=== PATIENT | female | born 1940 | race Caucasian/White ===

== ENCOUNTER 2016-08-26 06:30 | Inpatient (IN) | payer OTHER ==
[2016-07-09 09:13] VITALS: BMI 29.0
--- NOTE | 2016-07-09 09:43 | PAT Medication Instructions ---
Service Date Jul 09, 2016. Current Home Medication List Acetaminophen (Tylenol), 500 MG PO PRN Aspirin (Aspirin Ec), 81 MG PO QPM Carboxymethylcellulose Sodium (Refresh Tears), 1 DROP OPB BID PRN for RN Cholecalciferol (Vitamin D 1000 Unit), 2,000 INTER.UNIT PO QAM Fluticasone Propionate (Nasal) (Flonase Allergy Relief), 1 SPRAY ANN PRN Lansoprazole (Prevacid), 15 MG PO QAM Pravastatin (Pravachol ), 10 MG PO HS Tamoxifen (Nolvadex), 20 MG PO QAM Tocopheryl Acet,Dl-Alpha (Vitamin E), 400 INTER.UNIT PO QAM [ Atul Reds], 1 TAB PO QAM Medication Instructions For Your Scheduled Surgery Tamoxifen (Nolvadex), 20 MG PO QAM (continue as usual): - Hold the following medications 2 weeks prior to surgery: Tocopheryl Acet,Dl-Alpha (Vitamin E), 400 INTER.UNIT PO QAM [ Atul Reds], 1 TAB PO QAM - Hold the following medications the morning of surgery: Cholecalciferol (Vitamin D 1000 Unit), 2,000 INTER.UNIT PO QAM - Take the following medications the morning of surgery with a sip of water: Acetaminophen (Tylenol), 500 MG PO PRN (if needed) Carboxymethylcellulose Sodium (Refresh Tears), 1 DROP OPB BID PRN for RN (if needed) Lansoprazole (Prevacid), 15 MG PO QAM (if needed) Fluticasone Propionate (Nasal) (Flonase Allergy Relief), 1 SPRAY ANN PRN (if needed) - Take the following medications as scheduled the night before surgery: Aspirin (Aspirin Ec), 81 MG PO QPM (okay to continue per surgeon) Acetaminophen (Tylenol), 500 MG PO PRN (if needed) Carboxymethylcellulose Sodium (Refresh Tears), 1 DROP OPB BID PRN for RN (if needed) Pravastatin (Pravachol ), 10 MG PO HS Fluticasone Propionate (Nasal) (Flonase Allergy Relief), 1 SPRAY ANN PRN (if needed) If you have any questions please call us at [phone] (Nhung Johnson PA-C) or [phone] or [phone]
[2016-07-09 10:00] LABS: BASO % 0.5 %; BASO ABS # 0.03 K/uL (0-0.2); COMPLETE YES; EOS % 0.5 %; HEMATOCRIT 42.8 % (37-47); IG% 0.2 %; LYMPH % 24.9 %; LYMPH ABS # 1.51 K/uL (1.2-3.4); MEAN CELL VOLUME 90.5 fL (80-100); MEAN CORPUSCULAR HEMOGLOBIN 32.6 pg (25-34); MEAN PLATELET VOLUME 9.6 fL (7.4-10.4); MONO % 10.9 %; PLATELET COUNT 157 K/uL (130-400); RED BLOOD COUNT 4.73 M/uL (4.2-5.4); WHITE BLOOD COUNT 6.07 K/uL (4.8-10.8)
[2016-07-09 10:47] LABS: BUN/CREATININE RATIO 15.2 (10-20); CREATININE 0.75 mg/dl (0.60-1.20); POTASSIUM 4.3 mmol/L (3.5-5.1)
[2016-07-09 11:45] LABS: CALCIUM 9.4 mg/dl (8.5-10.1)
--- NOTE | 2016-08-20 22:39 | HISTORY & PHYSICAL EXAMINATION ---
DATE OF ADMISSION: 08/26/2016 CHIEF COMPLAINT: Left knee pain. HISTORY OF PRESENT ILLNESS: The patient is a 76-year-old female who is now about 6 months out from right knee replacement. She has got a long history of bilateral knee pain and discomfort, now has become more and more limited by her left knee. The pain is mostly on the medial side of her knee. It is increased with weightbearing. She has failed conservative treatment. She is happy with the right knee and would like to have her left knee replaced. PAST MEDICAL HISTORY: 1. Breast cancer status post resection without recurrence. 2. Elevated cholesterol. 3. Gastroesophageal reflux disease. 4. Mild obesity with a BMI of 29. PAST SURGICAL HISTORY: Previous surgeries include: 1. Mastectomy 5 years ago. 2. Right total knee replacement done 01/08/2016. ALLERGIES: None. CURRENT MEDICINES: Include: 1. Pravastatin 10 mg a day. 2. Tamoxifen 20 mg a day. 3. Aspirin 81 mg a day. 4. Omegared 400 mg. 5. Vitamin E. 6. Vitamin D3. SOCIAL HISTORY: A 76-year-old white female. She is . Lives in [place]. Does not drink alcohol. FAMILY HISTORY: Significant for heart disease and diabetes. REVIEW OF SYSTEMS: Negative for diabetes, neurologic problems, vascular problems, bleeding disorders. No chest pain or shortness of breath. No history of DVT or PE. PHYSICAL EXAMINATION: GENERAL: This is a pleasant healthy, middle-aged female who looks to be in good health. HEENT: Benign. NECK: Supple. No lymphadenopathy. LUNGS: Clear to auscultation. HEART: Has a regular rate and rhythm. ABDOMEN: Soft, nontender, nondistended. EXTREMITIES: Grossly neurovascularly intact except as follows: Examination of left knee reveals the patient walks with a slight varus alignment to her knee. She has bony hypertrophy medially. She is tender over the medial joint line. Small knee effusion. Range of motion 0-120. No instability. Examination of the right knee reveals well-healed incision. Fairly mild swelling. Range of motion 0-120. X-RAYS: X-rays of the left knee were reviewed. It shows advanced left knee DJD. She has complete loss of her medial joint space. ASSESSMENT: A 76-year-old white female, 6 months out from right knee replacement with advanced left knee degenerative joint disease. She has failed conservative treatment and would like to have her left knee fixed. She is happy with her right knee. PLAN: We are going to take her to the operating room and do a left total knee replacement. The risks and benefits of this procedure were explained to the patient including but not limited to DVT, PE, , infection, neurological injury, vascular injury, bleeding problems, pain, limited range of motion, stiffness, failure to relieve symptoms, incomplete relief of symptoms, etc. The patient understands and desires to proceed. Informed consent was obtained. We did talk to her about medicines. She will continue all her medicines except for supplements up to the time of surgery. She is planning to be discharged to home and use the [facility] home health program. I will see her back 2 weeks postop.
[2016-08-26] VITALS (8 sets, daily range): BP systolic 97–151; BP diastolic 52–82; PULSE 53–69; TEMP 36.3–36.7; O2SAT 94–99; Ht 154.9 cm; Wt 72.5 kg
[~2016-08-26] VITALS: Ht 154.9 cm; Wt 72.5 kg
[~2016-08-26 06:30] MED LIST: ACET-1256 PO; ACETAMINOPHEN 500 MG TAB PO SCH; ASPI81TA28 PO; BUPIVACAINE LIPOSOME 266 MG, BUPIVACAINE/EPINEPHRINE INJ 50 ML, SODIUM CHLORIDE 0.9% PF... INFIL SCH; CARB0.5D28 OPB; CEFAZOLIN 2000 MG/60 ML D5W 60 ML IV SCH; CHOL100027 PO; FAMOTIDINE 20 MG TAB PO SCH; FLUT0.15 NAE; GABAPENTIN 300 MG CAP PO SCH; LACTATED RINGER'S 1000ML 500 ML IV ONE; LACTATED RINGER'S 1000ML IV SCH; LANS15CA15 PO; MEGA REDS PO; METOCLOPRAMIDE HCL 10 MG TAB PO SCH; PRAV20TA PO; SCOPOLAMINE 1.5 MG TDSY TD SCH; TAMO20TA47 PO; TRANEXAMIC ACID INJ 1,000 MG in SODIUM CHLORIDE 0.9% 100ML 100 ML IV SCH; VITA400C15 PO
[2016-08-26] MEDS ORDERED: BUPIVACAINE 0.5 % 5 MG/1 ML PF 10ML VIAL ONE (06:35)
--- NOTE | 2016-08-26 06:54 | History & Physical Bridge Note ---
H&P Re-Evaluation Bridge Note: I have examined the patient, reviewed the History & Physical and in the interval since the performance of the History & Physical I have noted the following changes of clinical significance: No changes noted
[2016-08-26] MEDS ORDERED: PROPOFOL IV EMULSION 10 MG/ML 20 ML VIAL IV ONE (07:42)
[2016-08-26] MEDS ORDERED: MIDAZOLAM HCL 1 MG/ML 2ML VIAL ONE ×2 (07:42→07:43)
[2016-08-26] MEDS ORDERED: LIDOCAINE HCL 2% 2 ML VIAL (20MG/ML) ONE (07:42)
[2016-08-26] MEDS ORDERED: ONDANSETRON INJ 2 MG/ML 2 ML VIAL ONE (07:42)
[2016-08-26] MEDS ORDERED: FENTANYL CITRATE INJ 50 MCG/1 ML 2 ML VIAL ONE (07:43)
[2016-08-26] MEDS ORDERED: ATROPINE SULFATE 0.1 MG/ML 5ML SYR IV PRN (08:30)
[2016-08-26] MEDS ORDERED: FENTANYL CITRATE INJ 50 MCG/1 ML 2 ML VIAL IV PRN (08:30)
[2016-08-26] MEDS ORDERED: ONDANSETRON INJ 2 MG/ML 2 ML VIAL IV PRN ×2 (08:30→11:00)
[2016-08-26] MEDS ORDERED: EpHEDrine SULFATE INJ 50 MG/ML AMP IV PRN (08:30)
[2016-08-26] MEDS ORDERED: BUPIVACAINE LIPOSOME 1/3% 266 MG/20 ML VIAL INFIL ONE (09:15)
[2016-08-26] MEDS ORDERED: PHENYLEPHRINE HCL INJ 10 MG/ML VIAL ONE (09:56)
[2016-08-26] MEDS ORDERED: BACITRACIN 50000 UNIT VIAL IR ONE (10:15)
--- NOTE | 2016-08-26 10:59 | [facility] Post Operative Brief Note ---
Immediate Operative Summary Operative Date Aug 26, 2016. Pre-Operative Diagnosis Advanced Left Knee Degenerative Joint Disease Post-Operative Diagnosis Advanced Left Knee Degenerative Joint Disease Procedure(s) Performed Left Total Knee Arthroplasty Surgeon Dr. Dubon Internal Grinding Machine Operator Surgeon(s) APRIL Seo Estimated Blood Loss 50 ml Findings Left Knee DJD Fluids (cc crystalloids) 1600 cc Specimens A. Left Knee Bone and Tissue Drains None Anesthesia Spinal Complication(s) None Disposition Recovery Room / PACU
[2016-08-26] MEDS ORDERED: MoRPHine SULFATE 2 MG/ML CARP IV PRN (11:00)
[2016-08-26] MEDS ORDERED: BISACODYL 10 MG SUPP PR PRN (11:00)
[2016-08-26] MEDS ORDERED: SILVER SULFADIAZINE 1% CR 50 GM JAR EXT PRN (11:00)
[2016-08-26] MEDS ORDERED: METOCLOPRAMIDE HCL INJ 5 MG/ML 2 ML VIAL IV PRN (11:00)
[2016-08-26] MEDS ORDERED: DiphenhydrAMINE HCL 50 MG/ML VIAL IV PRN (11:00)
[2016-08-26] MEDS ORDERED: FLUTICASONE PROPIONATE NA SPR 16 GM BTL NAE PRN (11:00)
[2016-08-26] MEDS ORDERED: MAGNESIUM HYDROXIDE SUSP 30 ML UDC PO PRN (11:00)
[2016-08-26] MEDS ORDERED: ALUMINUM/MAGNESIUM/SIMETH (MAALOX MAX) 30 ML UDC PO PRN (11:00)
[2016-08-26] MEDS ORDERED: ZOLPIDEM TARTRATE 5 MG TAB PO PRN (11:00)
--- NOTE | 2016-08-26 11:32 | DIAGNOSTIC IMAGING REPORT ---
LEFT KNEE 1 OR 2 VIEWS ROUTINE CLINICAL HISTORY: Postop examination COMPARISON: None. DISCUSSION: There are postsurgical changes of a total left knee arthroplasty and patellar resurfacing. The femoral and tibial components appear well seated. Overlying skin bia are evident. There is air in the soft tissues consistent with recent surgery. IMPRESSION: Postsurgical changes of a total left knee arthroplasty. Electronically signed by: Franco Islas M.D. 08/26/2016 11:30 AM Dictated Date/Time: 08/26/2016 11:30 AM
--- NOTE | 2016-08-26 12:08 | OPERATIVE REPORT ---
DATE OF OPERATION: 08/26/2016 SURGEON: Dr. Giorgi Dubon. ENGRAVER AUTOMATIC: APRIL Gilman. PREOPERATIVE DIAGNOSIS: Left knee degenerative joint disease. POSTOPERATIVE DIAGNOSIS: Same. PROCEDURE PERFORMED: Left cemented posterior stabilized total knee arthroplasty. COMPLICATIONS: None. ESTIMATED BLOOD LOSS: 50 mL. FLUID REPLACEMENT: 1600 mL crystalloid fluid replacement. ANESTHESIA: Spinal with adductor canal block. DRAINS: None. SPECIMENS: Left knee sent for pathology. TOURNIQUET TIME: 50 minutes at 300 mmHg. OPERATIVE INDICATIONS: The patient is a 76-year-old female who has had a long history of bilateral knee pain, discomfort and DJD. She had failed conservative care. She underwent a right knee replacement 6 months ago, has done extremely well from this. She continued to be hampered by her left knee pain. X-rays showed advanced medial compartment DJD. The patient elects to proceed with operative treatment. OPERATIVE FINDINGS: Operative findings revealed advanced left knee medial compartment DJD. She had grade 4 [id number] disease with eburnation of the medial femoral condyle and the anterior medial tibial plateau. She had a large knee joint effusion. She had a fixed varus deformity to her knee. OPERATIVE IMPLANTS: Operative implants consisted of: 1. Biomet Vanguard size 60 left posterior stabilized femoral component. 2. Biomet size 67 tibial tray. 3. A 10 mm posterior stabilized polyethylene insert. 4. A 31 x 8 all poly patella. OPERATIVE PROCEDURE: The patient was taken to the operating room, identified and placed on the operating table in supine position. All contact areas were appropriately padded. IV antibiotics provided by the anesthesia team. A spinal anesthetic and adductor canal block had been provided in the holding area. Rocha catheter was placed in sterile fashion. Left thigh tourniquet was then placed and left lower extremity was then prepped and draped in the usual sterile fashion. The left leg was elevated and exsanguinated with the use of an Esmarch and tourniquet was placed at 300 mmHg. An anterior approach to the left knee was then performed through a longitudinal incision centered over the patella. Sharp dissection was carried out through the subcutaneous tissues down to the level of the extensor mechanism. A medial parapatellar arthrotomy incision was made. Some subperiosteal dissection was carried out medially. The fat pad was resected from beneath the patellar tendon. The lateral patellofemoral ligament was released. The patella was everted and knee was flexed. The osteophytes were taken off the distal femur. The ACL and PCL were then released from the distal femur and the tibia subluxated anteriorly. The external tibial alignment jig was then placed in the anterior face of the tibia and adjusted about 14 mm medially. Proximal tibial cut was made to remove about 2 mm of bone from the most deficient aspect of the medial tibial plateau. The tibia was then sized to a size 67. Some osteophytes were taken off medial and posteromedially. Attention was then drawn to the femur. The distal femur was entered with a sharp drill. Intramedullary canal was suctioned. A left 5-degree valgus cutting guide was placed. Distal femoral cutting block was pinned in place. Distal femoral cut was made to take an additional 3 mm of bone off the distal femur. The femur was then sized to a size 60. We did downsize this just slightly. The AP cutting block was pinned parallel to the epicondylar axis, which was 4 degrees of external rotation. The anterior cut, anterior chamfer, posterior cut, posterior chamfer cuts were made. Box cutting guide was placed and adjusted slightly lateral and the box cut was made. The knee was flexed. The remnants of the medial and lateral menisci were excised. The osteophytes were taken off the posterior aspect of the femur. Trial femoral component was placed. Tibial tray was pinned in maximum external rotation and the drill and stem punch were used to create defect in proximal tibia for the tibial tray. The knee was then trialed and a 10 mm insert fit most appropriately. Attention was then drawn to the patella. The patella was cleaned of all soft tissues. Patella thickness measured 22 mm, was cut down to 13. It was sized to a size 31 patella. Lug holes were drilled for the 31 patella. Lateral osteophyte was removed. Patella button was placed. Knee was taken through range of motion and the patella tracked nicely with no thumbs test. Attention was then drawn toward placement of the permanent components. All trial components were removed. The bone plug was placed in the distal femur to limit blood loss. A double batch of Palacos G cement was mixed. A left size 60 posterior stabilized femoral component, size 67 tibial tray, a 10 mm posterior stabilized polyethylene insert, and a 31 x 8 all poly patella were then cemented in place. Knee was brought out into full extension until cement hardened. A final cement check was then performed. The pericapsular tissues were injected with 100 mL of a combination of 20 mL of Exparel, 30 mL of normal saline, 50 mL of 0.25% Marcaine with epinephrine. The patient did receive 1 g of tranexamic acid. The tourniquet was then let down for a final tourniquet time of 15 minutes. Hemostasis was assured with use of electrocautery. The wound was once again irrigated. The extensor mechanism was then closed with a combination of #1 PDS suture and #1 Vicryl suture in a [id number] fashion. Extensor mechanism was checked and found to be intact. The subcutaneous tissues were then closed with 2-0 Dexon suture in a buried interrupted fashion. Skin was closed with skin bia. Leg was then cleaned and dried and a sterile dressing of Xeroform, 4 x 4, sterile cast padding and Juan Manuel bandage were applied. The patient was then transferred to the recovery room in stable condition. The patient tolerated the procedure well with no complications. All needle and sponge counts were correct at the end of the operation. I attest to the content of the Intraoperative Record and any orders documented therein. Any exceptions are noted below. JEROMED
[2016-08-26] MEDS: D5W AND 1/2NSS + 20MEQ KCL 1,000 ML IV SCH ×2 (13:35→22:21)
--- NOTE | 2016-08-26 13:53 | PROGRESS NOTE ---
DATE: 08/26/2016 DATE: 08/26/2016. SUBJECTIVE: A 76-year-old white female postop from a left knee replacement. She is doing well. Not having any pain. No chest pain or shortness of breath. Not feeling dizzy or lightheaded. OBJECTIVE: VITAL SIGNS: Temperature 36.3. Vital signs stable. PHYSICAL EXAMINATION: GENERAL: Reveals a pleasant elderly female. She is sitting up in bed and looks comfortable. She is talking to her family. LUNGS: Clear to auscultation. HEART: Regular rate and rhythm. ABDOMEN: Soft, nontender, nondistended. EXTREMITY EXAMINATION: Grossly neurovascularly intact except as follows: Examination of the left lower extremity reveals the leg to be well aligned. Dressing is clean, dry and intact. Toes are pink with brisk refill. He is just starting to get a little flicker of toe flexion and extension. X-RAYS: X-rays of the left knee from recovery room were reviewed. It shows a cemented posterior stabilized total knee arthroplasty. The components looked to be in good position. No signs of problems. ASSESSMENT: A 76-year-old white female postop from a left knee replacement, doing well. Pain is controlled. Her nerve function is just returning. The block is still in effect. PLAN: 1. DVT prophylaxis including thigh-high TEDs, SCDs, and aspirin twice a day. 2. PT/OT. Weightbearing as tolerated. Left total knee protocol. 3. Pain control, doing pretty well with current pain regimen. The block is still in effect and will have to titrate some additional pain medicine as needed. 4. IV antibiotics x24 hours. 5. Disposition: She is planning to be discharged home with [facility] home health program once adequately recovered.
--- NOTE | 2016-08-26 14:38 | Anesthesiology Progress Note ---
Anesthesia Post Op Note Date & Time Aug 26, 2016 at 14:38 Vital Signs Pain Intensity: 0 Vital Signs Past 12 Hours Date Time Temp Pulse Resp B/P Pulse Ox O2 Delivery O2 Flow Rate FiO2 08/26/16 13:18 64 18 139/82 08/26/16 12:31 36.3 60 16 121/81 99 Nasal Cannula 2.0 08/26/16 12:00 Nasal Cannula 2.0 08/26/16 12:00 36.3 59 16 125/71 98 Nasal Cannula 2.0 08/26/16 12:00 98 Nasal Cannula 2.0 08/26/16 11:45 36.5 61 15 108/60 99 Nasal Cannula 2 08/26/16 11:35 59 13 107/53 99 Nasal Cannula 2 08/26/16 11:25 65 16 104/52 99 Nasal Cannula 2 08/26/16 11:15 66 21 101/52 100 Nasal Cannula 2 08/26/16 11:06 36.6 73 19 104/53 99 Nasal Cannula 2 08/26/16 06:45 36.5 68 20 151/80 96 Room Air Notes Mental Status: alert / awake / arousable, participated in evaluation Pt Amnestic to Procedure: Yes Nausea / Vomiting: adequately controlled Pain: adequately controlled Airway Patency, RR, SpO2: stable & adequate BP & HR: stable & adequate Hydration State: stable & adequate Neuraxial Anesthesia: was administered, sensory block is resolving Anesthetic Complications: no major complications apparent
[2016-08-26] MEDS: KETOROLAC TROMETHAMINE 15 MG/ML VIAL IV. SCH ×2 (14:41→20:16)
[2016-08-26] MEDS: ACETAMINOPHEN 500 MG TAB PO SCH ×2 (14:43→22:20)
[2016-08-26] MEDS: CHECK SCOPOLAMINE PATCH PLACEMENT SCH (16:25)
[2016-08-26] MEDS ORDERED: TRANEXAMIC ACID INJ 1,000 MG in SODIUM CHLORIDE 0.9% 100ML 100 ML IV SCH (17:00)
[2016-08-26] MEDS: CEFAZOLIN IV 1,000 MG in DEXTROSE 5% 50ML 50 ML IV SCH (17:50)
[2016-08-26] MEDS: FERROUS GLUCONATE 324 MG TAB PO SCH (20:15)
[2016-08-26] MEDS: ASPIRIN 325 MG ECTAB PO SCH (22:19)
[2016-08-26] MEDS: PRAVASTATIN SOD 20 MG TAB PO SCH (22:19)
[2016-08-26] MEDS: DOCUSATE SODIUM 100 MG CAP PO SCH (22:19)
[2016-08-27] MEDS: CHECK SCOPOLAMINE PATCH PLACEMENT SCH ×3 (00:17→16:22)
[2016-08-27] MEDS: KETOROLAC TROMETHAMINE 15 MG/ML VIAL IV. SCH ×4 (02:14→20:15)
[2016-08-27] MEDS: CEFAZOLIN IV 1,000 MG in DEXTROSE 5% 50ML 50 ML IV SCH (02:15)
[2016-08-27 03:15] VITALS: BP 109/68; PULSE 57; TEMP 36.6; O2SAT 95
[2016-08-27] MEDS: ACETAMINOPHEN 500 MG TAB PO SCH ×3 (06:05→23:12)
[2016-08-27 06:54] LABS: HEMATOCRIT 38.9 % (37-47); MEAN CELL VOLUME 92.4 fL (80-100); MEAN CORPUSCULAR HEMOGLOBIN 32.1 pg (25-34); MEAN CORPUSCULAR HGB CONC 34.7 g/dl (32-36); MEAN PLATELET VOLUME 9.8 fL (7.4-10.4); PLATELET COUNT 159 K/uL (130-400); RED BLOOD COUNT 4.21 M/uL (4.2-5.4); WHITE BLOOD COUNT 9.29 K/uL (4.8-10.8)
[2016-08-27 07:15] VITALS: BP 124/72; PULSE 61; TEMP 36.5; O2SAT 95
[2016-08-27 07:25] LABS: BUN/CREATININE RATIO 11.9 (10-20); CALCIUM 8.5 mg/dl (8.5-10.1); CREATININE 0.8 mg/dl (0.60-1.20); POTASSIUM 4.3 mmol/L (3.5-5.1)
[2016-08-27] MEDS: MULTIVITAMIN TAB PO SCH (08:34)
[2016-08-27] MEDS: DOCUSATE SODIUM 100 MG CAP PO SCH ×2 (08:34→20:16)
[2016-08-27] MEDS: FERROUS GLUCONATE 324 MG TAB PO SCH ×3 (08:34→17:46)
[2016-08-27] MEDS ORDERED: MEGA REDS PO SCH (09:00)
[2016-08-27] MEDS ORDERED: NON-FORMULARY MEDICATION (Lansoprazole (Prevacid) 15 MG) PO SCH (09:00)
[2016-08-27] MEDS: PANTOprazole SOD 40 MG TAB PO SCH (09:09)
[2016-08-27] MEDS: ASPIRIN 325 MG ECTAB PO SCH ×2 (09:09→20:15)
[2016-08-27] MEDS: CHOLECALCIFEROL 1000 INTER.UNIT TAB PO SCH (09:09)
[2016-08-27] MEDS: D5W AND 1/2NSS + 20MEQ KCL 1,000 ML IV SCH (09:46)
--- NOTE | 2016-08-27 09:51 | Anesthesiology Progress Note ---
Anesthesia Post Op Note Date & Time Aug 27, 2016 at 09:50 Vital Signs Pain Intensity: 0.0 Vital Signs Past 12 Hours Date Time Temp Pulse Resp B/P Pulse Ox O2 Delivery O2 Flow Rate FiO2 08/27/16 07:25 Room Air 08/27/16 07:15 36.5 61 16 124/72 95 Room Air 08/27/16 03:15 36.6 57 16 109/68 95 Room Air 08/26/16 23:45 36.7 56 16 97/52 94 Room Air Notes Mental Status: alert / awake / arousable, participated in evaluation Pt Amnestic to Procedure: Yes Nausea / Vomiting: adequately controlled Pain: adequately controlled Airway Patency, RR, SpO2: stable & adequate BP & HR: stable & adequate Hydration State: stable & adequate Neuraxial Anesthesia: sensory block resolved Anesthetic Complications: no major complications apparent
[2016-08-27 10:40] VITALS: BP 123/78; PULSE 66; TEMP 36.4; O2SAT 97
[2016-08-27] MEDS: TRAMADOL HCL 50 MG TAB PO PRN (12:48)
[2016-08-27] MEDS ORDERED: ULT50X PO (12:50)
[2016-08-27] MEDS ORDERED: ASPEC325 PO (12:50)
[2016-08-27] MEDS ORDERED: ACET-1138 PO (12:50)
--- NOTE | 2016-08-27 12:52 | Discharge Instructions ---
Discharge Instructions Admission Reason for Admission: Localized, Primary Osteoarthritis; History of TKA Discharge Discharge Diagnosis / Problem: Left Knee Replacement Discharge Goals Goal(s): Decrease discomfort, Improve function, Increase independence, Improve disease control, Therapeutic intervention Activity Recommendations Activity Limitations: per Instructions/Follow-up section Weightbearing Status: Left weightbearing . Instructions / Follow-Up Instructions / Follow-Up ACTIVITY RECOMMENDATIONS: Physical Therapy: * You will go to physical therapy three times each week for four to six weeks after your surgery in order to regain your knee range of motion and to retrain your knee to work properly. * It is just as important to make sure you are getting your knee perfectly straight as it is to regain your knee bend. * Taking a pain pill an hour before therapy can help you have a more productive and comfortable therapy session. Home Exercise: * You were shown a series of exercises (heel props, heel slides, etc.) in the hospital. Do these exercises three to four times each day including the exercises you were shown in physical therapy. Walking: * Get up and walk several times each day. For the first four weeks, try not to stand or walk for more than one hour at a time. If you do stand or walk for more than one hour, you will not hurt anything, but your knee and leg will likely swell. * As you feel comfortable, you may change from the walker or crutches to a cane and then to independent walking. MEDICATIONS: New Medicine: * You will likely be taking one or more of these medications: 1. Tramadol - A quick and shorter-acting pain medication. Take one to two tablets every four to six hours to lessen your pain. 2. Aspirin - Thins your blood to lessen the chance of forming a blood clot. * The most common side effects of pain medicine and iron are nausea and constipation. If nausea or constipation is too much of a problem or if you have any questions about your new medicines or doses, call [facility] at [phone]. We will try to help you manage these issues. VERY IMPORTANT TO READ AND REVIEW" Pain: * The immediate post-operative period after knee replacement surgery is often quite painful. * You are given a prescription for pain medicine. You should take it, as directed, when you need it, especially before physical therapy and before going to bed. Pain that interferes with sleep is very common and can last several months. * You will likely need pain medicine for the first four to six weeks. It will not stop all of the pain. The pain will lessen and as you feel better, you may change to milder pain medicine such as Tylenol. * The most common side effects of pain medicine are nausea and constipation, so don't take more than you need. SPECIAL CARE INSTRUCTIONS: TEDs/Elastic Stockings: * The white elastic stockings help limit swelling and prevent blood clots from forming in your legs. The more you wear them, the more they work. * Wear them for six weeks after knee replacement surgery and four weeks after partial knee replacement. Prevention of Infection: * Take antibiotics one hour before any dental cleaning, dental work, urological procedure, gastrointestinal procedure or any invasive surgery in order to prevent your new joint from getting infected. * You may get the antibiotics from the doctor performing the procedure or you may call our office at before and we will call in a prescription to the pharmacy of your choice. Things to Watch For: * Drainage from the incision site that occurs more than one week after your surgery. * Severely increased knee/leg pain or swelling. * Increased redness at the incision site. * Fever above 102 degrees Fahrenheit. * Unusual chest pain or shortness of breath. * Unusual pain or burning with urination. Call [facility] at with any of the above problems or if you have any questions about your medicines or recovery. FOLLOW UP VISIT: Make an appointment to see your doctor for approximately two weeks after surgery for a progress check and staple removal by calling the office at . Current Hospital Diet Patient's current hospital diet: Regular Diet Discharge Diet Recommended Diet: Regular Diet Procedures Procedures Performed: Left Total Knee Arthroplasty Pending Studies Studies pending at discharge: no Medical Emergencies . Who to Call and When: Medical Emergencies: If at any time you feel your situation is an emergency, please call [phone] immediately. . Non-Emergent Contact Non-Emergency issues call your: Surgeon . "Provider Documentation" section prepared by Giorgi Dubon. VTE Core Measure Inpt VTE Proph given/why not?: Other Anticoagulation, T.E.D. Stockings, SCD's
--- NOTE | 2016-08-27 13:34 | PROGRESS NOTE ---
DATE: 08/27/2016 SUBJECTIVE: A 76-year-old white female, postop day 1 from a left knee replacement. She is doing pretty well. Some pain but manageable. Therapy went pretty well. Denies any chest pain or shortness of breath. Not feeling dizzy or lightheaded. OBJECTIVE: VITAL SIGNS: Temperature is 36.4. Vital signs stable. PHYSICAL EXAMINATION: GENERAL: Shows a pleasant elderly female. She is sitting up in her bedside chair and looks comfortable. LUNGS: Clear to auscultation. HEART: Regular rate and rhythm. ABDOMEN: Soft, nontender, nondistended. EXTREMITIES: Grossly neurovascularly intact except as follows: Examination of the left lower extremity reveals the leg to be well aligned. Dressing is clean, dry and intact. She can dorsiflex and plantarflex her foot appropriately. She is neurologically intact. LABS: Hemoglobin 13.5, hematocrit 38.9. Electrolytes are stable. ASSESSMENT: A 76-year-old white female, postop day 1 from a left knee replacement, doing pretty well. Pain seems to be managed. PLAN: 1. DVT prophylaxis including thigh-high TEDs, SCDs, and aspirin twice a day. 2. PT/OT. Weightbearing as tolerated. Left total knee protocol. 3. Pain control, doing pretty well with current pain regimen. 4. Disposition: She is planning discharge to home with some home health once adequately recovered.
[2016-08-27 15:10] VITALS: BP 132/80; PULSE 73; TEMP 37; O2SAT 95
[2016-08-27] MEDS ORDERED: NURSING VERBAL MED ORDER ONE (18:15)
[2016-08-27] MEDS: PRAVASTATIN SOD 20 MG TAB PO SCH (20:15)
[2016-08-28 00:22] VITALS: BP 127/75; PULSE 71; TEMP 36.7; O2SAT 95
[2016-08-28] MEDS: KETOROLAC TROMETHAMINE 15 MG/ML VIAL IV. SCH ×2 (01:29→07:55)
[2016-08-28] MEDS: ACETAMINOPHEN 500 MG TAB PO SCH (06:24)
[2016-08-28 07:05] VITALS: BP 116/72; PULSE 69; TEMP 36.8; O2SAT 97
--- NOTE | 2016-08-28 07:50 | PROGRESS NOTE ---
DATE: 08/28/2016 SUBJECTIVE: A 76-year-old white female postop day #2 from a left knee replacement. She is doing pretty well. The pain seems to be a little bit improved today. She is getting around reasonably well. No chest pain and no shortness of breath. Not feeling dizzy or lightheaded. OBJECTIVE: VITAL SIGNS: Temperature 36.7. Vital signs stable. GENERAL: Physical examination reveals a healthy pleasant elderly female. She is up walking around into her bathroom this morning with her walker and doing pretty well. LUNGS: Clear to auscultation. HEART: Regular rate and rhythm. ABDOMEN: Soft, nontender, and nondistended. EXTREMITIES: Grossly neurovascularly intact except as follows: Examination of the left lower extremity reveals the leg to be well aligned. Her incision is clean, dry and intact. Minimal drainage. She can dorsiflex and plantarflex her foot appropriately. ASSESSMENT: A 76-year-old white female postop day #2 from a left knee replacement, doing pretty well. Pain is controlled. PLAN: 1. DVT prophylaxis including thigh-high TEDs, SCDs, and aspirin twice a day. 2. PT/OT. Weightbearing as tolerated. Left total knee protocol. 3. Pain control, doing pretty well with current pain regimen. 4. Disposition: Plan to discharge to home with some home health.
[2016-08-28] MEDS: DOCUSATE SODIUM 100 MG CAP PO SCH (08:34)
[2016-08-28] MEDS: MULTIVITAMIN TAB PO SCH (08:34)
[2016-08-28] MEDS: ASPIRIN 325 MG ECTAB PO SCH (08:34)
[2016-08-28] MEDS: FERROUS GLUCONATE 324 MG TAB PO SCH (08:34)
[2016-08-28] MEDS: PANTOprazole SOD 40 MG TAB PO SCH (08:35)
[2016-08-28] MEDS: CHOLECALCIFEROL 1000 INTER.UNIT TAB PO SCH (08:35)
[2016-08-28 09:24] VITALS: BP 116/72; PULSE 69; TEMP 36.8; O2SAT 97
[2016-08-28] MEDS: TRAMADOL HCL 50 MG TAB PO PRN (09:51)
--- NOTE | 2016-09-09 13:45 | DISCHARGE SUMMARY ---
ADMITTING PHYSICIAN AND SURGEON: Dr. Dubon. ADMITTING DIAGNOSIS: Left knee degenerative joint disease. SURGERY PERFORMED: Left total knee replacement. SECONDARY DIAGNOSES: Breast cancer, elevated cholesterol, gastroesophageal reflux disease, mild obesity. CONSULTS: None obtained. HISTORY AND PHYSICAL EXAMINATION: Well documented in the patient's chart. HOSPITAL COURSE: The patient was admitted on 08/26/2016 underwent total knee arthroplasty, tolerated the procedure well. There were no complications. She was transferred to the PACU postoperatively and later to the orthopedic floor for further care. She was given Ancef for antibiotic prophylaxis, ERNST stockings, SCDs and aspirin for DVT prophylaxis. Hemoglobin, hematocrit and vital signs were monitored during her hospital stay and remained stable. She did not require any blood transfusions. There were no complications. By postoperative day 2, she was tolerating a general diet, pain was controlled with oral pain medicine. She was participating in physical therapy and had no signs or symptoms of deep vein thrombosis. On postop day 2, she was discharged home in good condition, set up with home health services, given printed discharge instructions including extra strength Tylenol, aspirin 325 mg b.i.d., tramadol. Continue her home medicines with the exception of her home dose of Tylenol and aspirin which were changed. Continue physical therapy, weightbearing as tolerated. ERNST stockings. Follow up in 10-12 days or sooner if there are any problems or concerns.
== END 2016-08-28 12:30 | disposition home health service (06) | DRG 470 ==
LOC: ENRESERVDT → ENRESERVTM → C.ACU 06:30 → C.3E 11:03
PROVIDERS: ADMIT Orthopaedic Surgery Sports Medicine; ATTEND Orthopaedic Surgery Sports Medicine
PROC: 0SRD0J9 Replacement of Left Knee Joint with Synthetic Substitute, Cemented, Open Approach (ICD-10-PCS; principal; 2016-08-26 08:45)
DX: M17.12 Unilateral primary osteoarthritis, left knee (principal); M21.162 Varus deformity, not elsewhere classified, left knee; M25.462 Effusion, left knee; E78.00 Pure hypercholesterolemia, unspecified; K21.9 Gastro-esophageal reflux disease without esophagitis; E66.9 Obesity, unspecified; Z68.29 Body mass index [BMI] 29.0-29.9, adult; Z96.651 Presence of right artificial knee joint; Z85.3 Personal history of malignant neoplasm of breast; Z79.82 Long term (current) use of aspirin; Z79.810 Long term (current) use of selective estrogen receptor modulators (SERMs); Z79.899 Other long term (current) drug therapy

== ENCOUNTER → 2017-04-17 | Outpatient (CLI) | payer OTHER ==
[~2017-04-17] MED LIST changes: +ACET-1138 PO; -ACET-1256 PO; -ACETAMINOPHEN 500 MG TAB PO SCH; +ASPEC325 PO; -ASPI81TA28 PO; -BUPIVACAINE LIPOSOME 266 MG, BUPIVACAINE/EPINEPHRINE INJ 50 ML, SODIUM CHLORIDE 0.9% PF... INFIL SCH; -CEFAZOLIN 2000 MG/60 ML D5W 60 ML IV SCH; -FAMOTIDINE 20 MG TAB PO SCH; -GABAPENTIN 300 MG CAP PO SCH; -LACTATED RINGER'S 1000ML 500 ML IV ONE; -LACTATED RINGER'S 1000ML IV SCH; -METOCLOPRAMIDE HCL 10 MG TAB PO SCH; -SCOPOLAMINE 1.5 MG TDSY TD SCH; -TAMO20TA47 PO; -TRANEXAMIC ACID INJ 1,000 MG in SODIUM CHLORIDE 0.9% 100ML 100 ML IV SCH; +ULT50X PO
--- NOTE | 2017-04-17 13:42 | MAMMOGRAPHY REPORT ---
UNILATERAL LEFT DIGITAL SCREENING MAMMOGRAM TOMOSYNTHESIS WITH CAD: 04/17/2017 CLINICAL HISTORY: Asymptomatic. Personal history of breast cancer. TECHNIQUE: Breast tomosynthesis in addition to standard 2D mammography was performed. Current study was also evaluated with a Computer Aided Detection (CAD) system. Left CC and MLO 2-D and tomosynthes is images were obtained. COMPARISON: Comparison is made to exams dated: 04/16/2016 mammogram, 04/10/2015 mammogram, 02/20/2014 ma mmogram, 02/17/2013 mammogram, 02/16/2012 mammogram, and 01/29/2011 mammogram - [facility] nter. BREAST COMPOSITION: There are scattered areas of fibroglandular density in the left breast. FINDINGS: There are no suspicious masses, calcifications, or areas of architectural distortion noted within the left breast. There has been no significant interval change compared to prior exams. IMPRESSION: ACR BI-RADS CATEGORY 1: NEGATIVE There is no mammographic evidence of malignancy in the left breast. A 1 year screening mammogram is r ecommended. The patient will receive written notification of the results. Approximately 10% of breast cancers are not detected with mammography. A negative mammographic report should not delay biopsy if a clinically suggestive mass is present. Dipika Ibrahim M.D. ah/:04/17/2017 10:51:09 Business Education Instructor: Shruthi BROWN)([place]), [facility] letter sent: Normal 1/2 BI-RADS Code: ACR BI-RADS Category 1: Negative
== END | disposition home or self-care (01) ==
LOC: C.MAMM 08:45
PROVIDERS: ATTEND Obstetrics & Gynecology
DX: Z12.31 Encounter for screening mammogram for malignant neoplasm of breast (principal); Z90.11 Acquired absence of right breast and nipple